=== PATIENT | female | born 1975 | race Caucasian/White ===

== ENCOUNTER 2022-06-04 11:28 | Outpatient (CLI) | payer BC, SELFPAY ==
[2022-06-04 21:36] LABS: Chloride* 106 mmol/L (96-114); Potassium* 4.3 mmol/L (3.6-5.1); Sodium* 137 mmol/L (135-149)
[2022-06-04 21:38] LABS: Cholesterol* 220 mg/dL (90-199); Creatinine* 0.8 mg/dL (0.5-1.5); Estimated Glomerular Filt Rate 90 ml/min
[2022-06-04 21:40] LABS: Alanine Aminotransferase* 18 U/L (4-35); Alkaline Phosphatase* 59 U/L (40-150); Aspartate Amino Transferase* 25 U/L (12-35); Bilirubin Total* 0.5 mg/dL (0.1-1.5); Blood Urea Nitrogen* 11 mg/dL (5-24); Calcium* 8.9 mg/dL (8.4-10.6); Carbon Dioxide* 22 mmol/L (20-32); Glucose* 92 mg/dL (60-115); HDL Cholesterol* 42 mg/dL (>=50); LDL Cholesterol Calculated 147 mg/dL (<100); Total Protein* 6.7 g/dL (6.0-8.3); Triglycerides* 155 mg/dL (40-149)
[2022-06-04 21:57] LABS: Vitamin D 25 Hydroxy* 21 ng/mL (30-80)
[2022-06-04 22:15] LABS: Ferritin* 26.8 ng/mL (6.24-137.0)
== END 2022-06-04 11:29 | disposition home or self-care (01) ==
PROVIDERS: PCP Family Medicine; Visit Provider Family Medicine
DX: Z01.419 Encounter for gynecological examination (general) (routine) without abnormal findings (principal); E55.9 Vitamin D deficiency, unspecified; E78.5 Hyperlipidemia, unspecified; E66.9 Obesity, unspecified; F41.9 Anxiety disorder, unspecified
CPT/HCPCS: 80053; 80061; 82306; 82728; 84443

== ENCOUNTER 2022-07-02 11:49 | Outpatient (CLI) | payer BC, SELFPAY ==
--- OUTSIDE RECORDS SUMMARY | 2022-07-12 10:15 | XMS_ITS ---
:1975 Author Name No Primary, Care Care Team Providers Name Role Phone No Primary, Care Unavailable Unavailable PROBLEMS Type Condition ICD9-CM RDO22-DG Onset Condition SNOMED Cod e Code Code Dates Status Problem Bilateral M26.603 Active 6902067973 [id number] temporomandibular joint disorder, unspecified Problem Jaw pain R68.84 Active [id number] ALLERGIES Substance Reaction Event Type Date Status seasonal Unknown Non Drug Allergy Apr, Active ENCOUNTERS Encounter Location Date Diagnosis [facility] [address] Jun, Jaw p ain R68.84 [facility] [place], [place] Bilateral te mporomandibular [address] joint disorder, unspecified M26.603 [facility] [address] May, Jaw p ain R68.84 [facility] [place], [place] Bilateral te mporomandibular [address] joint disorder, unspecified M26.603 [facility] [address] May, Jaw p ain R68.84 [facility] [place], [place] Bilateral te mporomandibular [address] joint disorder, unspecified M26.603 [facility] [address] Apr, Jaw p ain R68.84 [facility] [place] Bilateral [place] mporomandibular [address] joint disorder, unspecified M26.603 [facility] [address] Apr, Jaw p ain R68.84 [facility] [place] Bilateral te mporomandibular [address] joint disorder, unspecified M26.603 [facility] [address] Apr, [facility] [address] [address] [facility] [address] Apr, Bilat eral temporomandibular [facility] [place] joint disord er, unspecified [address] M26.603 and Jaw pain R68.84 IMMUNIZATIONS No Known Immunizations SOCIAL HISTORY Qualifiers Date Never Smoker REASON FOR REFERRAL Reason REHAB PT: Physical Therapy T LINDA Short Course Referral Organization [facility] Referring Provider First Name Braulio Referring Provider Last Name Adama Referring Provider Specialty Occupational Medicine Referring Provider Referring Provider email [email or web address] Organization [facility] Referred Provider Marycarmen Banerjee иван Referred Address [address],[place], [place],[address] Referred Provider Specialty Rehabilitation FUNCTIONAL STATUS PLAN OF CARE Activity Details Referral REHAB PT: Physical Therapy T MJ Short Course, [facility], [address], [place], [address], [email or web address], VITAL SIGNS Height 5 ft 4 in in 2022-04-26 Weight 180 lbs 2022-04-26 BMI 30.89 kg/m2 2022-04-26 Blood pressure systolic 116 mm Hg 2022-04-26 Blood pressure diastolic 76 mm Hg 2022-04-26 MEDICATIONS Medication Instructions Dosage Frequency Start Date End Date Duration S tatus Advair HFA Inhalation Twice 2 puffs 12h Acti ve 45-21 MCG/ACT a day Ibuprofen Active Claritin Active PROCEDURES Procedure Date Ordered Result Body Site Therapeutic Exercise PT May 10, 2022 Neuromuscular Reeducation PT May 07, 2022 Neuromuscular Reeducation PT Jun 13, 2022 Therapeutic Exercise PT Jun 13, 2022 Neuromuscular Reeducation PT May 30, 2022 Neuromuscular Reeducation PT May 21, 2022 Neuromuscular Reeducation PT May 10, 2022 PT EVAL LOW COMPLEX May 07, 2022 RESULTS No Results REASON FOR VISIT Insurance Providers [facility]ly [facility] Patient Patient Patient Patient Patient Subscriber Subscriber Subscriber Group Insurance Plan Plan Plan Plan ID Relationship Address Phone Name Date of ID Name Date of No Type Insurance Insurance Insurance Coverage to Subscriber Address Phone Name Dates [facility] [phone] [facility] Jennie [id number] Oscar [id number] [facility] Oscar Oeltjen [id number] [facility] [address] MEDICAL (GENERAL) HISTORY Type Description Date Medical History General Past Medical History: Anxiety,Asthma,Migraines,Headaches Surgical History C section 2005 Surgical History Sinus surgery 10/02 Surgical History [place] teeth removal 2009
== END 2022-07-02 11:50 | disposition home or self-care (01) ==
LOC: NFLDREF 07-12 10:10
PROVIDERS: PCP Family Medicine; Visit Provider Physician Assistant
DX: R31.9 Hematuria, unspecified (principal); Z12.4 Encounter for screening for malignant neoplasm of cervix; F41.9 Anxiety disorder, unspecified
CPT/HCPCS: 87086

== ENCOUNTER 2022-11-22 07:22 | Outpatient (CLI) | payer BC, SELFPAY ==
--- NOTE | 2022-11-22 10:02 | W.ANESCHARGE ---
Anesthesia Charges Start Date/Time Anesthesia Start Date: 11/22/22 Anesthesia Start Time: 09:35 Stop Date/Time Anesthesia Stop Date: 11/22/22 Anesthesia Stop Time: 10:02
== END 2022-11-22 07:23 | disposition home or self-care (01) ==
PROVIDERS: PCP Family Medicine; Visit Provider Internal Medicine
DX: Z12.11 Encounter for screening for malignant neoplasm of colon (principal)
CPT/HCPCS: 00811; 45378

== ENCOUNTER 2023-01-09 11:25 | Outpatient (CLI) | payer BC, SELFPAY ==
--- NOTE | 2023-01-09 11:30 | CRLHL7_ITS ---
For Patients: As a result of the Century Cures Act, medical imaging exams and procedure reports are released immediately into your electronic medical record. You may view this report before your referring provider. If you have questions, please contact your health care provider. BILATERAL SCREENING MAMMOGRAM WITH COMPUTER-AIDED DETECTION AND TOMOSYNTHESIS TECHNIQUE: CC and MLO views were obtained. These mammographic images have been obtained using full-field digital technique. These mammographic images were interpreted with the benefit of computer-aided detection. Breast Tomosynthesis was used in this interpretation. COMPARISON FILM: 01/08/22, 01/04/21, 12/21/19. FINDINGS: The breasts are heterogeneously dense, which may obscure small masses IMPRESSION: There is no radiographic evidence for malignancy. ASSESSMENT: BI-RADS Category 1: Negative RECOMMENDATION: Routine screening mammogram in 1 year. A lay language report of this examination will be provided to the patient. King Sung M.D. Diagnostic/Nuclear Medicine Radiologist [email or web address] SAVANNAH/Dictated by: King Sung MD @ 01/09/2023 12:14:00 PM (Electronically Signed)
== END 2023-01-09 11:26 | disposition home or self-care (01) ==
LOC: MAMMO 11:26
PROVIDERS: PCP Family Medicine; Visit Provider Family Medicine
DX: Z12.31 Encounter for screening mammogram for malignant neoplasm of breast (principal); R92.2 Inconclusive mammogram
CPT/HCPCS: 77063; 77067

== ENCOUNTER 2023-03-24 15:18 | Outpatient (CLI) | payer BC, SELFPAY | END 2023-03-24 15:19 | disposition home or self-care (01) | PROVIDERS: PCP Family Medicine; Visit Provider Obstetrics & Gynecology | DX: R53.83 Other fatigue (principal); E55.9 Vitamin D deficiency, unspecified; F41.1 Generalized anxiety disorder | CPT/HCPCS: 82652 ==

== ENCOUNTER 2023-05-03 11:15 | Emergency (ER) | payer BC, SELFPAY ==
[2023-05-03 11:20] VITALS: BP 113/78; PULSE 80; RESP 16; TEMP 34.8; O2SAT 96; BMI 30.9
--- NOTE | 2023-05-03 11:34 | ED_ITS ---
HPI - General Adult General Chief complaint: Extremity Pain/Injury, Lower Stated complaint: thrown from horse,left hip pain Time Seen by Provider: 05/03/23 11:33 History of Present Illness HPI narrative: Pt was thrown off her own horse yesterday , horse was at walking pace. Pt landed on L side of body onto gravel, onto mostly L hip, no loc. Pt was able to limp herself to house after the fall. Pt presents today with most concern about L hip/pelvis/leg pain immobility 48-year-old woman presenting to the emergency department with complaint of left hip area pain. She fell from a horse yesterday landing on her left side. She is sore but not really with back or neck pain. No did not strike her head. No abdominal pain. There was no loss of consciousness. No radicular symptoms. When I ask her point of most pain it seems to be in the anterior upper mid thigh on the left. Most difficult is to flex her thigh or for example in walking bringing her leg up. She has been using crutches. Has been icing. That particular feels good. Also ibuprofen and acetaminophen. Related Data Home Medications Medication Instructions Recorded Confirmed multivitamin (Multiple Vitamins 1 tab PO QDAY 06/05/22 05/03/23 tablet) triamcinolone acetonide 55 mcg 1 spray intranasal QDAY 06/05/22 05/03/23 nasal spray aerosol (Nasacort) cetirizine 10 mg tablet 10 mg PO QDAY PRN 02/07/23 05/03/23 ibuprofen 05/03/23 Previous Rx's Medication Instructions Recorded albuterol sulfate 90 mcg/actuation 2 puff inhalation Q4-6H PRN 06/05/22 aerosol inhaler bronchospasm #6.7 grams cholecalciferol (vitamin D3) 50 50 mcg PO QDAY PRN vit d 06/05/22 mcg (2,000 unit) capsule deficiency #90 caps fluticasone 250 mcg-salmeterol 50 1 inh inhalation BID #60 ea 06/05/22 mcg/dose blistr powdr for inhalation (Advair Diskus) venlafaxine 75 mg capsule,extended 75 mg PO QAM #30 caps 03/24/23 release 24 hr (Effexor XR) Allergies Allergy/AdvReac Type Severity Reaction Status Date / Time No Known Allergies Allergy Verified 05/03/23 11:25 Review of Systems Status of ROS: Reports: 6 or more systems reviewed and unremarkable except as noted in History and below PFSH PFS Medical History Well controlled persistent asthma ?J45.998 - Other asthma (ICD-10) Urethral cyst ?N36.8 - Other specified disorders of urethra (ICD-10) depression ?F53.0 - depression (ICD-10) Pilonidal cyst ?L05.91 - Pilonidal cyst without abscess (ICD-10) Dyslipidemia ?E78.5 - Hyperlipidemia, unspecified (ICD-10) Anxiety ?F41.9 - Anxiety disorder, unspecified (ICD-10) Surgical History S/P surgical removal of pilonidal cyst ?Z98.890 - Other specified postprocedural states (ICD-10) History of third molar tooth extraction (2008) ?K08.409 - Partial loss of teeth, unspecified cause, unspecified class (ICD- 10) History of sinus surgery (09/2021) ?Z98.890 - Other specified postprocedural states (ICD-10) History of section (2005) ?Z98.891 - History of uterine scar from previous surgery (ICD-10) Family History Other Family history not known due to adoption Vitamin D deficiency Social History Narrative: exercises three times per week- gym, operations trainer, weights and cardio, farm chores , stay at home mom, 2 kids non-smoker social drinker- 1/week Smoking Status: Never smoker How often do you have a drink containing alcohol: 2-4 times a month AUDIT-C Alcohol total score: 2 Non-prescribed substance use: denies use Little interest or pleasure in doing things: several days Feeling down, depressed, or hopeless: several days Exam Narrative: Exam Narrative: Pleasant. Seated gingerly at the edge of the bed. Crutches are in the room. And nerves 2 through 12 intact. Easily conversant. Breathing easily. Neck is supple nontender. Head is atraumatic. Back is nontender until in palpating around the left SI joint. There is some faint erythematous short scratches I think consistent with a fall about her left side but she is not really tender in this area. She is not tender in the left greater trochanter. Abdomen is soft and nontender. She does have some reproducible pain to palpation deep in the left upper somewhat inner thigh but not exactly over the abductors. She is sore in the left midial medial buttock area. Mildly sore in the sits bones on the left. She has a large bandage on her left elbow and is moving upper extremities without difficulty. (she does not feel that the elbow/bandag ed area needs any tension) Const: Vital Signs, click to edit/add: Vital Signs - 24 hr 05/03/23 11:20 Temperature 94.7 F L Pulse Rate [Left P ulse Oximeter] 80 Respiratory Rate 16 Blood Pressure [Ri ght Upper Arm] 113/78 Pulse Oximetry 96 Oxygen Delivery Me thod Room Air Documenting provider has reviewed patient's vital signs: yes Course Vital Signs Vital signs: Initial Vital Signs Temperature 94.7 F L 05/03/23 11:20 Temperature Source Temporal Artery Scan 05/03/23 11:20 Pulse Rate 80 05/03/23 11:20 Respiratory Rate 16 05/03/23 11:20 Blood Pressure 113/78 05/03/23 11:20 Blood Pressure Mean 89 05/03/23 11:20 Blood Pressure Position Sitting 05/03/23 11:20 Pulse Oximetry 96 05/03/23 11:20 Oxygen Delivery Method Room Air 05/03/23 11:20 Vital Signs Temperature 94.7 F L 05/03/23 11:20 Pulse Rate 80 05/03/23 11:20 Respiratory Rate 16 05/03/23 11:20 Blood Pressure 113/78 05/03/23 11:20 Pulse Oximetry 96 05/03/23 11:20 Oxygen Delivery Method Room Air 05/03/23 11:20 Temperature 94.7 F L 05/03/23 11:20 Pulse Rate 68 05/03/23 14:05 Respiratory Rate 16 05/03/23 14:05 Blood Pressure 125/83 05/03/23 14:05 Pulse Oximetry 96 05/03/23 14:05 Oxygen Delivery Method Room Air 05/03/23 14:05 Medical Decision Making [facility] Narrative Medical decision making narrative: I think certainly warrants imaging. Contemplating flat plate but this is not an insignificant traumatic event. I have more confidence in CT imaging here. This would not diagnosis ligamentous injury apart from avulsion but could certainly have sustained a the deeper hematoma, bruising otherwise or a fracture of pelvis or hip. Will provide a some pain medication in the form [place] as well as ice packs. CT scan was by my read unremarkable for acute abnormality. Radiology over-read noted significant lumbar facet disease. This does not sound to be a surprise to Ms. Peacock. Still with pain but improved with treatment. See patient discharge plan. Discharge Plan Discharge Clinical Impression: Acute hip pain, Sacro-iliac pain, Fall Patient Disposition: Home w/ Parent or Adult Condition: Stable Additional Instructions: I would continue to ice the areas that hurt 2-3 times daily over the next few days maybe even this week. See handout sacroiliac pain and groin strain. I think these might be helpful to continue mobility and strength and stabilize this area. Follow-up in a week if just not improving. Can use the crutches to assist with resting. Can take up to 800 mg of ibuprofen or up to 1000 mg of acetaminophen per dose. Alternative to the ibuprofen might be up to 500 mg naproxen 2 times daily. Remember these tablet of [place] contains 325 mg of acetaminophen. Ibuprofen or naproxen may be combined with acetaminophen same dosing if necessary. Riverton from [facility]. Prescriptions: No Action multivitamin [Multiple Vitamins] Tablet 1 tab PO QDAY triamcinolone acetonide [Nasacort] 55 mcg aerosol,spray 1 spray intranasal QDAY Rx Instructions: administer into each nostril cholecalciferol (vitamin D3) 50 mcg (2,000 unit) capsule 50 mcg PO QDAY PRN (Reason: vit d deficiency) Qty: 90 3RF fluticasone propion-salmeterol [Advair Diskus] 250-50 mcg/dose blister with device 1 inh inhalation BID Qty: 60 12RF albuterol sulfate 90 mcg/actuation HFA aerosol inhaler 2 puff inhalation Q4-6H PRN (Reason: bronchospasm) Qty: 6.7 5RF cetirizine 10 mg tablet 10 mg PO QDAY PRN venlafaxine [Effexor XR] 75 mg capsule,extended release 24hr 75 mg PO QAM Qty: 30 1RF Rx Instructions: Begin 75 mg dose after one week of 37.5 mg dose. ibuprofen Follow Up/Referrals: Miriam Moore MD [Primary Care Provider] - Stand Alone Forms: [employer] Info Instructions
--- NOTE | 2023-05-03 11:40 | CRLHL7_ITS ---
For Patients: As a result of the Century Cures Act, medical imaging exams and procedure reports are released immediately into your electronic medical record. You may view this report before your referring provider. If you have questions, please contact your health care provider. INDICATION: Left groin/hip/SI joint pain post fall from horse TECHNIQUE: Volumetric helical scanning of the pelvis was performed without contrast material. Coronal and sagittal reconstructions were obtained. COMPARISON: None. FINDINGS: No hip or pelvic fracture is identified. No subluxation/diastasis is evident. No obvious soft tissue injury/hematoma is demonstrated. Advanced facet degenerative changes at L4-5 L5-S1 are noted. The visualized bowel is unremarkable. The uterus is retroverted. No lymphadenopathy is evident. No free fluid is noted. IMPRESSION: Negative for fracture and other acute traumatic abnormality. Please note that all CT scans at this facility use dose modulation, iterative reconstruction, and/or weight-based dosing when appropriate to reduce radiation dose to as low as reasonably achievable. Dictated by Nic Henriquez MD @ 05/03/2023 12:42:33 PM (Electronically Signed)
--- NOTE | 2023-05-03 12:00 | ED.NURSE ---
no iv per dr lawrence
[2023-05-03] MEDS: HYDROCODONE-ACETAMIN 5-325 MG 1 TAB 2 TAB PO (12:13)
--- OUTSIDE RECORDS SUMMARY | 2023-05-03 12:26 | XMS_ITS | Patient Health Record ---
Author Name Unknown Organization [facility] Address [address] [place] [address] [address] [place] [address] Care Team Providers Care Cloth Examiner Name Role Phone No Primary, Care Primary Care Provider Unavailab Braulio Mclean Unavailable [phone] Nic Munguia Unavailable Unavailable Tayler Cates Unavailable [phone] Karen Palomo Unavailable [phone] ALLERGIES Allergen (clinical drug ingredient) Drug/Non Drug Allergy documented on EMR Reaction Allergy Type Onset Date Status seasonal (uncoded) Unknown Allergy A ctive REASON FOR REFERRAL No Information MEDICATIONS Medication SIG (Take, Route, Frequency, Duration) Notes Start Date End Date Status Ibuprofen Active Claritin Active Advair HFA 45-21 MCG/ACT 2 puffs Inhalat ion Twice a day Active SOCIAL HISTORY Tobacco Use: Social History Observation Description Date Details (start date - stop date) Never Smoker NA - NA Sex Assigned At : Social History Observation Description Sex Assigned At Unknown Tobacco Use/Smoking: Question Answer Notes Are you a nonsmoker Alcohol Screen Question Answer Notes Did you have a drink contain ing alcohol in the past year? Yes How often did you have a dri nk containing alcohol in the past year? 2 to 4 times a month (2 points) How many drinks did you have on a typical day when you were drinking in the past year? 1 or 2 drinks (0 point) Points 2 Interpretation Negative PROBLEMS Problem Type ICD Code Onset Dates Problem Status W/U Status Risk SNOMED Code Notes Problem Jaw pain (R68.84) Active confirmed Jaw pain (118223827) Problem Bilateral temporomandibular joint disorder, unspecified (M26.603) Active confirmed Bilateral temporomandibular joint disorder ([id number]) Encounters Encounter Location Date Provider Diagnosis [facility] [address] [place] [address] 05/07/2022 Tayler Cates Jaw pain R68.84 and Bilateral temporomandibular joint disorder, unspecified M26.603 [facility] [address] [place] [address] 05/10/2022 Tayler Cates Jaw pain R68.84 and Bilateral temporomandibular joint disorder, unspecified M26.603 [facility] [address] [place] [address] 05/21/2022 Karen Stacia Jaw pain R68.84 and Bilateral temporomandibular joint disorder, unspecified M26.603 [facility] [address] [place] [address] 05/24/2022 Tayler Cates [facility] [address] [place] [address] 05/30/2022 Karen Stacia Jaw pain R68.84 and Bilateral temporomandibular joint disorder, unspecified M26.603 [facility] [address] [place] [address] 06/13/2022 Tayler Cates Jaw pain R68.84 and Bilateral temporomandibular joint disorder, unspecified M26.603 ASSESSMENTS Encounter Date Diagnosis Assessment Notes Treatment Notes Treatment Clinical Notes 05/07/2022 Jaw pain (ICD-10 - R68.84) 05/10/2022 Jaw pain (ICD-10 - R68.84) 05/21/2022 Jaw pain (ICD-10 - R68.84) 05/30/2022 Jaw pain (ICD-10 - R68.84) 06/13/2022 Jaw pain (ICD-10 - R68.84) 06/13/2022 Bilateral temporomandibular joint disorder, unspecified (ICD-10 - M26.603) 05/30/2022 Bilateral temporomandibular joint disorder, unspecified (ICD-10 - M26.603) 05/21/2022 Bilateral temporomandibular joint disorder, unspecified (ICD-10 - M26.603) 05/10/2022 Bilateral temporomandibular joint disorder, unspecified (ICD-10 - M26.603) 05/07/2022 Bilateral temporomandibular joint disorder, unspecified (ICD-10 - M26.603) PLAN OF TREATMENT No Information Insurance Providers Payer Name Payer Address Payer Phone Subscriber Number Group Number Insured Name Patient Relationship to Insured Coverage Start Date Coverage End Date [facility] [address] [address] [place] [address] [id number] A3 yoana peacock Spouse - patient is the spouse of the insured 1 MEDICAL (GENERAL) HISTORY Medical History History ICD Code General Past Medical History: Anxiety,As thma,Migraines,Headaches Surgical History Surgery Date(Month/Year) C section 2006 Sinus surgery 10/02 [place] teeth removal 2009
[2023-05-03 14:05] VITALS: BP 125/83; PULSE 68; RESP 16; O2SAT 96
== END 2023-05-03 14:18 | disposition home or self-care (01) ==
PROVIDERS: Emergency Provider Family Medicine; PCP Family Medicine
DX: M25.552 Pain in left hip (principal); M53.3 Sacrococcygeal disorders, not elsewhere classified; V80.010A Animal-rider injured by fall from or being thrown from horse in noncollision accident, initial encounter
CPT/HCPCS: 72192; 99284; A9270

== ENCOUNTER 2023-07-15 07:45 | Outpatient (CLI) | payer BC, SELFPAY ==
--- OUTSIDE RECORDS SUMMARY | 2023-07-16 14:19 | XMS_ITS | Patient Health Record ---
Author Name Unknown Organization [facility] Address [address] [place] [address] [address] [place] [address] Care Team Providers Care Network Project Manager Name Role Phone No Primary, Care Primary Care Provider Unavailab Braulio Mclean Unavailable [phone] Nic Munguia Unavailable Unavailable ALLERGIES Allergen (clinical drug ingredient) Drug/Non Drug [...] Jaw pain (R68.84) Active confirmed Jaw pain (568571101) Problem Bilateral temporomandibular joint disorder, unspecified (M26.603) Active confirmed Bilateral temporomandibular joint disorder ([id number]) PLAN OF TREATMENT No Information Insurance Providers Payer Name Payer Address Payer Phone Subscriber Number Group Number Insured Name Patient Relationship to Insured Coverage Start Date Coverage End Date [facility] [address] [address] [place] [address] [id number] A3 yoana peacock Spouse - patient is the spouse of the insured 1 MEDICAL (GENERAL) HISTORY Medical History History ICD Code General Past Medical History: Anxiety,As thma,Migraines,Headaches Surgical History Surgery Date(Month/Year) C section 2006 Sinus surgery 10/02 [place] teeth removal 2009
== END 2023-07-15 07:46 | disposition home or self-care (01) ==
LOC: NFLDREF 07-16 14:17
PROVIDERS: PCP Family Medicine; Referring Provider Family Medicine; Visit Provider Family Medicine
DX: E55.9 Vitamin D deficiency, unspecified (principal); E78.5 Hyperlipidemia, unspecified; Z13.1 Encounter for screening for diabetes mellitus
CPT/HCPCS: 80061; 82306; 82947

== ENCOUNTER 2024-01-12 12:54 | Outpatient (CLI) | payer BC, SELFPAY ==
--- NOTE | 2024-01-12 13:00 | MM_ITS ---
Patient: MANOJ MCWILLIAMS Facility:?[facility] Patient ID:?[id number] Site Patient ID:?[id number]. Site :?[id number] Study:?XRay-Breast Bilateral 3D W/CAD-01/12/2024 2:01:56 PM Ordering Physician:Romulo Final Report: BILATERAL SCREENING MAMMOGRAM WITH COMPUTER-AIDED DETECTION AND TOMOSYNTHESIS TECHNIQUE: CC and MLO views were obtained. These mammographic images have been obtained using full-field digital technique. These mammographic images were interpreted with the benefit of computer-aided detection. Breast Tomosynthesis was used in this interpretation. COMPARISON FILM: 01/09/23, 01/08/22, 01/04/21. FINDINGS: The breasts are heterogeneously dense, which may obscure small masses IMPRESSION: There is no radiographic evidence for malignancy. ASSESSMENT: BI-RADS Category 1: Negative RECOMMENDATION: Routine screening mammogram in 1 year. A lay language report of this examination will be provided to the patient. Chandana Sinha M.D. Diagnostic Radiologist [email or web address] SHERRY/gaston Transcribed: 11:23 adashawn feldman/Dictated by: Chandana Sinha MD @ 01/13/2024 10:17:00 AM Signed by:Tani Sinha MD @01/13/2024 12:07:18 PM (Electronic Signature)
== END 2024-01-12 12:55 | disposition home or self-care (01) ==
LOC: MAMMO 12:55
PROVIDERS: PCP Family Medicine; Visit Provider Family Medicine
DX: Z12.31 Encounter for screening mammogram for malignant neoplasm of breast (principal); R92.2 Inconclusive mammogram
CPT/HCPCS: 77063; 77067

== ENCOUNTER 2024-02-10 11:04 | Outpatient (CLI) | payer BC, SELFPAY | END 2024-02-10 11:05 | disposition home or self-care (01) | LOC: NFLDREF 11:05 | PROVIDERS: PCP Family Medicine; Visit Provider Family Medicine | DX: R35.0 Frequency of micturition (principal) | CPT/HCPCS: 87086 ==

== ENCOUNTER 2024-09-02 09:59 | Outpatient (CLI) | payer BC, SELFPAY ==
--- OUTSIDE RECORDS SUMMARY | 2024-09-05 10:32 | XMS_ITS | Patient Health Record ---
Author Organization [facility] Address [address] [place] [address] Care Team Providers Care Medic Technician Name Role Phone No Primary, Care Primary Care Provider Unavailab Braulio Mclean Unavailable [phone] Nic Munguia Unavailable Unavailable Allergies Allergen (clinical drug ingredient) Drug/Non Drug Allergy documented on EMR Reaction Allergy Type Onset Date Status seasonal (uncoded) Unknown Allergy A ctive Reason For Referral No Information Medications Medication SIG (Take, Route, Frequency, Duration) Notes Start Date End Date Status Ibuprofen Active Claritin Active Advair HFA 45-21 MCG/ACT 2 puffs Inhalat ion Twice a day Active Social History Tobacco Use: Social History Observation Description Date Details (start date - stop date) Never Smoker NA - NA Tobacco Use/Smoking: Question Answer Notes Are you [...] drinks (0 point) Points 2 Interpretation Negative Problems Problem Type SNOMED Code ICD Code Onset Dates Problem Status W/U Status Risk Notes Problem Jaw pain (245899070) Jaw pain (R68.84) Active confirmed Problem Bilateral temporomandibular joint disorder ([id number]) Bilateral temporomandibular joint disorder, unspecified (M26.603) Active confirmed Plan Of Treatment No Information Insurance Providers Payer Name Payer Address Payer Phone Subscriber Number Group Number Insured Name Patient Relationship to Insured Coverage Start Date Coverage End Date [facility] [address] [address] [place] [address] [id number] A3 yoana peacock Spouse - patient is the spouse of the insured 1 Medical (General) History Medical History History ICD Code General Past Medical History: Anxiety,As thma,Migraines,Headaches Surgical History Surgery Date(Month/Year) [place] teeth removal 2009 Sinus surgery 10/02 C section 2006
== END 2024-09-02 10:00 | disposition home or self-care (01) ==
LOC: NFLDREF 09-05 10:30
PROVIDERS: PCP Family Medicine; Referring Provider Family Medicine; Visit Provider Family Medicine
DX: E78.5 Hyperlipidemia, unspecified (principal); Z13.1 Encounter for screening for diabetes mellitus
CPT/HCPCS: 80061; 82947

== ENCOUNTER 2025-01-24 07:59 | Outpatient (CLI) | payer BC, SELFPAY ==
--- NOTE | 2025-01-24 08:15 | CRLHL7_ITS ---
For Patients: As a result of the Century Cures Act, medical imaging exams and procedure reports are released immediately into your electronic medical record. You may view this report before your referring provider. If you have questions, please contact your health care provider. INDICATION: Abnormal uterine bleeding. History of section. COMPARISON: None available. TECHNIQUE: Transabdominal and endovaginal grayscale and color doppler (duplex) pelvic ultrasound. FINDINGS: LMP: 12/13/2024 Uterus: Anteverted and retroflexed. Measures 5.9 x 3.6 x 7.9cm. In the posterior uterine cervix there is an oval circumscribed mildly heterogeneous solid lesion with internal vascularity on color Doppler which measures 2 x 1.2 x 1.8 cm (transverse by AP by craniocaudad, respectively) consistent with a cervical fibroid. Incidental note is otherwise made of small clustered cervical nabothian cysts within the region of the internal os altogether measuring 5 mm in greatest dimension. Endometrial stripe: Measures 8mm. Uniform in thickness. Right Ovary: Measures 1.6 x 1.8 x 2.6cm and 4mL. Morphologically normal. Paraovarian anechoic unilocular cyst measuring 1.7 cm in greatest dimension. Spectral Doppler demonstrates normal arterial and venous waveforms. Left Ovary: Measures 2.9 x 2.6 x 3.1cm and 12mL. Dominant follicle measuring 2.6 cm. Spectral Doppler demonstrates normal arterial and venous waveforms. Pelvic fluid: No significant pelvic ascites. IMPRESSION: In the posterior uterine cervix there is an oval circumscribed mildly heterogeneous solid lesion with internal vascularity on color Doppler which measures 2 x 1.2 x 1.8 cm (transverse by AP by craniocaudad, respectively) consistent with a cervical fibroid. Anteverted and retroflexed uterus. Otherwise unremarkable uterus. Normal endometrial stripe. Dictated by Kingsley Vasquez MD @ 01/24/2025 1:14:53 PM (Electronically Signed)
== END 2025-01-24 08:00 | disposition home or self-care (01) ==
LOC: US 07:59
PROVIDERS: PCP Family Medicine; Visit Provider Physician Assistant
DX: N92.0 Excessive and frequent menstruation with regular cycle (principal); R93.89 Abnormal findings on diagnostic imaging of other specified body structures
CPT/HCPCS: 76830; 76856; 84443

== ENCOUNTER 2025-02-03 14:48 | Outpatient (CLI) | payer BC, SELFPAY ==
--- NOTE | 2025-02-03 15:00 | CRLHL7_ITS ---
For Patients: As a result of the Century Cures Act, medical imaging exams and procedure reports are released immediately into your electronic medical record. You may view this report before your referring provider. If you have questions, please contact your health care provider. BILATERAL DIGITAL SCREENING MAMMOGRAM WITH COMPUTER-AIDED DETECTION AND TOMOSYNTHESIS CLINICAL HISTORY: Routine screening exam. COMPARISON: 01/12/24, 01/09/23, 01/08/22 TECHNIQUE: Digital mammogram in CC and MLO projections including computer-aided detection (CAD). Tomosynthesis was used in this interpretation. BREAST COMPOSITION: The breasts are heterogeneously dense, which may obscure small masses. FINDINGS: RIGHT Breast: Focal asymmetric density within the upper-outer quadrant 10 cm from the nipple. LEFT Breast: No suspicious findings. IMPRESSION: RIGHT breast asymmetry/mass. RECOMMENDATIONS: Additional mammographic views of the RIGHT breast including 3D spot compression cc/MLO. RIGHT breast ultrasound may also be required. The [facility] will contact the patient. A lay language report of this examination will be provided to the patient. BI-RADS Category 0: Incomplete: Need Additional Imaging Evaluation Dictated by Chandana Sinha MD @ 02/04/2025 12:41:45 PM Dictated by: Chandana Sinha MD @ 02/04/2025 12:41:53 (Electronically Signed)
== END 2025-02-03 14:49 | disposition home or self-care (01) ==
LOC: MAMMO 14:48
PROVIDERS: PCP Family Medicine; Visit Provider Family Medicine
DX: Z12.31 Encounter for screening mammogram for malignant neoplasm of breast (principal); R92.333 Mammographic heterogeneous density, bilateral breasts
CPT/HCPCS: 77063; 77067

== ENCOUNTER 2025-02-21 10:33 | Outpatient (CLI) | payer BC, SELFPAY ==
--- NOTE | 2025-02-21 10:45 | CRLHL7_ITS ---
For Patients: As a result of the Cures Act, medical imaging exams and procedure reports are released immediately into your electronic medical record. You may view this report before your referring provider. If you have questions, please contact your health care provider. DIGITAL DIAGNOSTIC RIGHT MAMMOGRAM WITH TOMOSYNTHESIS AND COMPUTER-AIDED DETECTION RIGHT BREAST ULTRASOUND CLINICAL HISTORY: RIGHT breast mass/asymmetry. COMPARISON: 02/03/2025, 01/12/2024, 01/09/2023. TECHNIQUE: Digital RIGHT mammogram in two projections. Tomosynthesis was used in this interpretation. Real-time ultrasound imaging of RIGHT breast with imaging documentation. BREAST COMPOSITION: The breasts are heterogeneously dense, which may obscure small masses. FINDINGS: 3D spot compression CC/MLO RIGHT breast mammogram images submitted. Persistent nodular density within the upper outer quadrant RIGHT breast without architectural distortion. No suspicious calcifications. Targeted RIGHT breast ultrasound performed. At 10 o`clock 7 cm from the nipple, there is a circumscribed anechoic simple cyst at mid depth which measures 8 x 6 x 7 millimeters. IMPRESSION: Benign cyst RIGHT breast 10 o`clock 7 cm from the nipple measuring 8 millimeters. No suspicious findings. RECOMMENDATIONS: Routine screening mammography. A lay language report of this examination will be provided to the patient. BI-RADS Category 2: Benign Dictated by Chandana Sinha MD @ 02/21/2025 11:44:09 AM jj/Dictated by: Chandana Sinha MD @ 02/21/2025 11:44:00 AM (Electronically Signed)
--- NOTE | 2025-02-21 11:15 | CRLHL7_ITS ---
For Patients: As a result of the Cures Act, medical imaging exams and procedure reports are released immediately into your electronic medical record. You may view this report before your referring provider. If you have questions, please contact your health care provider. SEE DIGITAL DIAGNOSTIC RIGHT MAMMOGRAM PERFORMED SAME DAY CRL:[email or web address] [email or web address]/Dictated by: Chandana Sinha MD @ 02/21/2025 11:44:00 AM (Electronically Signed)
== END 2025-02-21 10:34 | disposition home or self-care (01) ==
LOC: MAMMO 10:33
PROVIDERS: PCP Family Medicine; Visit Provider Family Medicine
DX: N63.10 Unspecified lump in the right breast, unspecified quadrant (principal); R92.8 Other abnormal and inconclusive findings on diagnostic imaging of breast
CPT/HCPCS: 76642; 77065; G0279